=== PATIENT | female | born 1985 | race Caucasian/White ===

== ENCOUNTER 2016-10-04 10:36 | Emergency (ER) | payer OTHER ==
[2016-10-04 10:41] VITALS: TEMP 98.1; BMI 28.3
--- NOTE | 2016-10-04 11:28 | PDOC ---
History of Present Illness - General Chief Complaint: Pain Stated Complaint: RT SIDE PAIN Time Seen by Provider: 10/04/16 11:19 History Source: Patient Exam Limitations: No Limitations - History of Present Illness Initial Comments: 10/04/16 11:28 CHIEF COMPLAINT: Flank pain HISTORY OF PRESENT ILLNESS: This is an otherwise healthy 30 year old female, s/ p cholecystectomy, who presents for evaluation of two days of right upper abdominal/right flank pain. She also reports urinary frequency, but denies dysuria or hematuria. She has had some nausea. She denies fevers/chills, constipation/diarrhea, and vomiting. PCP is Dr. Limon. Nursing documentation reviewed and disagree: respiratory rate is 18. REVIEW OF SYSTEMS: GENERAL/CONSTITUTIONAL: No fever or chills. No weakness. No weight change. HEAD, EYES, EARS, NOSE AND THROAT: No change in vision. No ear pain or discharge. No sore throat. CARDIOVASCULAR: No chest pain or palpitations. RESPIRATORY: No cough, wheezing, or shortness of breath. GASTROINTESTINAL: Nausea. No vomiting, diarrhea or constipation. GENITOURINARY: See HPI. MUSCULOSKELETAL: No joint or muscle swelling or pain. No neck or back pain. SKIN: No rash or easy bruising. NEUROLOGIC: No headache, vertigo, loss of consciousness, or loss of sensation. PSYCHIATRIC: No depression or anxiety. ENDOCRINE: No increased thirst. No abnormal weight change. HEMATOLOGIC/LYMPHATIC: No anemia, easy bleeding, or history of blood clots. ALLERGIC/IMMUNOLOGIC: No hives or skin allergy. No latex allergy. PHYSICAL EXAM: GENERAL: The patient is awake, alert, and fully oriented, in no acute distress. ENT: Pupils equal, round and reactive to light, extraocular movements intact, sclera anicteric, conjunctiva clear. Neck supple. LUNGS: Clear to auscultation bilaterally. Normal excursion. No respiratory distress or use of accessory muscles. CV: RRR, S1/S2, no MRG. Cap refill < 2 sec. ABDOMEN: Soft, non-distended, right CVA tenderness, no abdominal tenderness. EXTREMITIES: Normal range of motion, no edema. NEUROLOGICAL: Normal speech, normal gait. CN II-XII grossly intact. PSYCH: Normal mood, normal affect. SKIN: Warm, dry, normal turgor, no rashes or lesions noted. Past History - Past Medical History Allergies/Adverse Reactions: Allergies Allergy/AdvReac Type Severity Reaction Status Date / Time No Known Allergies Allergy Verified 10/04/16 10:38 Home Medications: Ambulatory Orders Amitriptyline HCl [Elavil -] 0 mg PO DAILY 10/04/16 Ibuprofen [Motrin -] 600 mg PO QID PRN #30 tablet 10/04/16 Anemia: No Asthma: No Cancer: No Cardiac Disorders: No CVA: No COPD: No CHF: No DVT: No Diabetes: No HTN: No Hypercholesterolemia: No Suicide Attempt (Hx): No - Surgical History Abdominal Surgery: No Appendectomy: No Cardiac Surgery: No Cholecystectomy: Yes Lung Surgery: No Neurologic Surgery: No - Immunization History Immunization Up to Date: Yes - Psycho/Social/Smoking Cessation Hx Anxiety: No Suicidal Ideation: No Smoking Status: No Smoking History: Never smoked Have you smoked in the past 12 months: No Number of Cigarettes Smoked Daily: 0 Information on smoking cessation initiated: No Hx Alcohol Use: No Drug/Substance Use Hx: No Substance Use Type: None Hx Substance Use Treatment: No *Physical Exam - Vital Signs Last Vital Signs Temp Pulse Resp BP Pulse Ox 98.1 F 73 8 L 123/71 100 10/04/16 10:39 10/04/16 10:39 10/04/16 10:39 10/04/16 10:39 10/04/16 10:39 ED Treatment Course - LABORATORY CBC & Chemistry Diagram: 10/04/16 11:49 10/04/16 11:49 Medical Decision Making - Medical Decision Making 10/04/16 17:35 A/P: 30 year old female with flank pain, urinary frequency, and nausea. 1. UA, culture, 2. Basic labs 3. Toradol 30mg IVP for pain UA with 1+ blood. CT spiral renal stone protocol obtained showing punctate bilateral nephrolithiasis without obstructing stone. Patient re-evaluated and is pain free. Agrees to follow up with PCP. Return precautions reviewed. *DC/Admit/Observation/Transfer Diagnosis at time of Disposition: Flank pain - Discharge Dispostion Disposition: HOME Admit: No - Prescriptions Prescriptions: Ibuprofen [Motrin -] 600 mg PO QID PRN #30 tablet PRN Reason: Pain - Referrals Referrals: Michelle De Anda MD [Primary Care Provider] - - Patient Instructions Printed Discharge Instructions: DI for Flank Pain Additional Instructions: -Rest and stay well-hydrated -Take ibuprofen as prescribed for pain -Follow up with Dr. Limon on Friday -Return here for worsening pain or any other concerning symptoms - Post Discharge Activity Work/School Note: Back to Work
[2016-10-04] MEDS ORDERED: ONDANSETRON 4 MG/2 ML VIAL IVPUSH ONE (11:32)
[2016-10-04] MEDS ORDERED: KETOROLAC TROMETHAMINE 30 MG/1 ML VIAL IVPUSH ONE (11:33)
[2016-10-04 11:41] LABS: URINE APPEARANCE CLEAR; URINE BILIRUBIN NEGATIVE (NEGATIVE); URINE COLOR STRAW; URINE GLUCOSE (UA) NEGATIVE (NEGATIVE); URINE KETONE NEGATIVE (NEGATIVE); URINE LEUK ESTERASE NEGATIVE (NEGATIVE); URINE NITRITE NEGATIVE (NEGATIVE); URINE PROTEIN NEGATIVE (NEGATIVE); URINE UROBILINOGEN NEGATIVE E.U./dl (0.2-1.0)
[2016-10-04] MEDS ORDERED: ONDANSETRON 4 MG/2 ML VIAL ONE (11:52)
[2016-10-04] MEDS ORDERED: KETOROLAC TROMETHAMINE 30 MG/1 ML VIAL ONE (11:52)
[2016-10-04 11:57] LABS: URINE BLOOD 1+ (NEGATIVE)
[2016-10-04 12:00] LABS: URINE WBC 1 /hpf (3-5)
[2016-10-04 12:06] LABS: BASOPHIL 0.4 % (0-2.0); EOSINOPHIL 1.6 % (0-4.5); MCH 29.5 pg (25.7-33.7); MCHC 33.9 g/dl (32.0-36.0); MEAN PLT VOLUME 8.6 fl (7.5-11.1); NEUTROPHILS 50.4 % (42.8-82.8); PLATELET COUNT 283 K/MM3 (134-434); RDW 13.1 % (11.6-15.6); WHITE BLOOD COUNT 7.4 K/mm3 (4.0-10.0)
[2016-10-04 12:26] LABS: ALBUMIN 4.3 g/dl (3.4-5.0); ALK PHOS 65 U/L (45-117); ANION GAP 10 (8-16); BILIRUBIN,TOTAL 0.4 mg/dL (0.2-1.0); CALCIUM 9.6 mg/dL (8.5-10.1); CO2 28 mmol/L (21-32); CREATININE 0.6 mg/dL (0.55-1.02); GLUCOSE,RANDOM 83 mg/dL (74-106); SGOT/AST 21 U/L (15-37); SGPT/ALT 35 U/L (12-78); TOT PROT 7.7 g/dl (6.4-8.2)
[2016-10-04 14:01] VITALS: BP 121/78; PULSE 78
== END 2016-10-04 14:00 | disposition home or self-care (01) ==
LOC: JER 10:36
PROC: 3E0333Z Introduction of Anti-inflammatory into Peripheral Vein, Percutaneous Approach (ICD-10-PCS; principal; 2016-10-04)
PROC: 3E033GC Introduction of Other Therapeutic Substance into Peripheral Vein, Percutaneous Approach (ICD-10-PCS; 2016-10-04)
DX: R10.31 Right lower quadrant pain (principal)
CPT/HCPCS: 36415; 74176; 80053; 81003; 81015; 83690; 84703; 85025; 87086; 96374; 96375; 99282-25

== ENCOUNTER 2016-12-18 13:02 | Emergency (ER) | payer OTHER ==
[2016-12-18 13:08] VITALS: BMI 29.2
--- NOTE | 2016-12-18 13:40 | PDOC ---
History of Present Illness - General Chief Complaint: Pain Stated Complaint: PAIN/ ABD, BACK Time Seen by Provider: 12/18/16 13:29 History Source: Patient Exam Limitations: No Limitations - History of Present Illness Initial Comments: CHIEF COMPLAINT: 31 y/o afebrile female with PMH GERD and gallstone pancreatitis (gallbladder removed) c/o upper abdominal pain with eating x 3 days. HISTORY OF PRESENT ILLNESS: The patient states the pain is sharp, radiates around her left upper abdomen and into her back. She has mild associated nausea. She denies f/c, v/d, CP, SOB, hematuria, dysuria. Vital signs on arrival are within normal limits. REVIEW OF SYSTEMS: GENERAL/CONSTITUTIONAL: No fever/chills. No weakness. No weight change. HEAD, EYES, EARS, NOSE AND THROAT: No change in vision. No ear pain or discharge. No sore throat. CARDIOVASCULAR: No chest pain or shortness of breath. RESPIRATORY: No cough, wheezing, or hemoptysis. GASTROINTESTINAL: +upper abdominal pain and nausea. No vomiting, diarrhea, constipation. GENITOURINARY: No dysuria, frequency, or change in urination. MUSCULOSKELETAL: No joint or muscle swelling or pain. No neck or back pain. SKIN: No rash or easy bruising. NEUROLOGIC: No headache, vertigo, loss of consciousness, or loss of sensation. PHYSICAL EXAM: GENERAL: The patient is awake, alert, and fully oriented, in no acute distress. She is well appearing, ambulatory, in NAD or obvious discomfort. HEAD: Normal with no signs of trauma. ENT: Pupils equal, round and reactive to light, extraocular movements intact, sclera anicteric, conjunctiva clear. Neck supple. LUNGS: Clear to auscultation bilaterally. Normal excursion. No respiratory distress or use of accessory muscles. CV: RRR, S1/S2, no MRG. Cap refill < 2 sec. ABDOMEN: Soft, TTP of epigstric and LUQ. Negative mckeon's sign. No rebound, guarding or rigidity. BACK: No CVA TTP b/l. EXTREMITIES: Normal range of motion, no edema. NEUROLOGICAL: Normal speech, normal gait. CN II-XII grossly intact. PSYCH: Normal mood, normal affect. SKIN: Warm, dry, normal turgor, no rashes or lesions noted. Past History - Past Medical History Allergies/Adverse Reactions: Allergies Allergy/AdvReac Type Severity Reaction Status Date / Time No Known Allergies Allergy Verified 12/18/16 13:08 Home Medications: Ambulatory Orders Omeprazole 20 mg PO DAILY 12/18/16 Anemia: No Asthma: No Cancer: No Cardiac Disorders: No CVA: No COPD: No CHF: No DVT: No Diabetes: No HTN: No Hypercholesterolemia: No Suicide Attempt (Hx): No - Surgical History Abdominal Surgery: No Appendectomy: No Cardiac Surgery: No Cholecystectomy: Yes Lung Surgery: No Neurologic Surgery: No - Immunization History Immunization Up to Date: Yes - Psycho/Social/Smoking Cessation Hx Anxiety: No Suicidal Ideation: No Smoking Status: No Smoking History: Never smoked Have you smoked in the past 12 months: No Number of Cigarettes Smoked Daily: 0 Hx Alcohol Use: No Drug/Substance Use Hx: No Substance Use Type: None Hx Substance Use Treatment: No Abd/GI Specific PMHX - Complaint Specific PMHX Colitis: No Diverticulitis: No Gall Bladder Disease: No GERD: No Hepatitis: No Irritable Bowel Synd (IBS): No Pancreatitis: No *Physical Exam - Vital Signs Last Vital Signs Temp Pulse Resp BP Pulse Ox 98.3 F 87 20 128/69 99 12/18/16 13:06 12/18/16 13:06 12/18/16 13:06 12/18/16 13:06 12/18/16 13:06 ED Treatment Course - LABORATORY CBC & Chemistry Diagram: 12/18/16 14:00 12/18/16 14:00 Medical Decision Making - Medical Decision Making A/P: 31 y/o female with epigastric pain that radiates around to her back x 3 days. Plan is as follows: 1. Labs 2. UA/hcg 3. IV fluids 4. IV pepcid Labs unremarkable. UA unremarkable. hcg - negative The patient states she does feel better after pepcid. She admits she does have GERD and was told by her GI doctor (doesn't remember name) that she should either change her diet or take omeprazole daily. She does neither. She states a few days ago she did take 1 omeprazole. I informed her that the omeprazole really doesn't work well unless it is taken daily for a few weeks/months consistently. I suggested she buy some OTC pepcid or zantac and take for flare ups as that is fast acting. Instructed her to f/u with her GI doctor and return to the ER with any worsening or concerning symptoms. The patient verbalizes understanding of all instructions, has no further questions and is awaiting discharge. *DC/Admit/Observation/Transfer Diagnosis at time of Disposition: Gastroesophageal reflux disease Qualifiers: Esophagitis presence: without esophagitis Qualified Code(s): K21.9 - Gastro- esophageal reflux disease without esophagitis - Discharge Dispostion Disposition: HOME Condition at time of disposition: Improved - Referrals Referrals: Michelle De Anda MD [Primary Care Provider] - - Patient Instructions Printed Discharge Instructions: GERD Diet, DI for Gastroesophageal Reflux Disease (GERD) Additional Instructions: Discharge Instructions: -Follow GERD diet suggestions to help with symptoms -Try over the counter zantac or pepcid for GERD flare ups -Call your stomach doctor tomorrow to schedule follow up appointment as soon as possible -Return to the ER with any worsening or concerning symptoms
[2016-12-18] MEDS ORDERED: SODIUM CHLORIDE 1,000 ML IV STA (13:46)
[2016-12-18] MEDS ORDERED: FAMOTIDINE 20 MG/50 ML IVPB 50 ML IVPB ONE ×2 (13:46→13:56)
[2016-12-18 14:45] LABS: BASOPHIL 0.3 % (0-2.0); EOSINOPHIL 1.4 % (0-4.5); MCH 29.5 pg (25.7-33.7); MCHC 34.1 g/dl (32.0-36.0); MEAN CELL VOLUME 86.7 fl (80-96); MEAN PLT VOLUME 8.8 fl (7.5-11.1); NEUTROPHILS 53.1 % (42.8-82.8); PLATELET COUNT 278 K/MM3 (134-434); RDW 12.9 % (11.6-15.6); WHITE BLOOD COUNT 7.9 K/mm3 (4.0-10.0)
[2016-12-18 14:49] LABS: URINE APPEARANCE SLCLOUDY; URINE BILIRUBIN NEGATIVE (NEGATIVE); URINE BLOOD 3+ (NEGATIVE); URINE COLOR YELLOW; URINE GLUCOSE (UA) NEGATIVE (NEGATIVE); URINE KETONE NEGATIVE (NEGATIVE); URINE LEUK ESTERASE NEGATIVE (NEGATIVE); URINE NITRITE NEGATIVE (NEGATIVE); URINE PROTEIN NEGATIVE (NEGATIVE); URINE UROBILINOGEN NEGATIVE mg/dL (0.2-1.0)
[2016-12-18 14:58] LABS: URINE MUCUS RARE; URINE RBC 13 /hpf (0-3); URINE WBC 13 /hpf (3-5)
[2016-12-18 15:07] LABS: ALBUMIN 4.3 g/dl (3.4-5.0); ANION GAP 5 (8-16); BILIRUBIN,TOTAL 0.4 mg/dL (0.2-1.0); CALCIUM 9.2 mg/dL (8.5-10.1); CO2 30 mmol/L (21-32); CREATININE 0.7 mg/dL (0.55-1.02); GLUCOSE,RANDOM 88 mg/dL (74-106); SGOT/AST 22 U/L (15-37); SGPT/ALT 36 U/L (12-78); TOT PROT 7.5 g/dl (6.4-8.2)
[2016-12-18 15:08] LABS: ALK PHOS 59 U/L (45-117)
[2016-12-18 17:01] VITALS: BP 115/70; PULSE 71; TEMP 98.1
== END 2016-12-18 17:01 | disposition home or self-care (01) ==
LOC: JER 13:02
PROC: 3E033GC Introduction of Other Therapeutic Substance into Peripheral Vein, Percutaneous Approach (ICD-10-PCS; principal; 2016-12-18)
PROC: 3E0337Z Introduction of Electrolytic and Water Balance Substance into Peripheral Vein, Percutaneous Approach (ICD-10-PCS; 2016-12-18)
DX: K21.9 Gastro-esophageal reflux disease without esophagitis (principal)
CPT/HCPCS: 36415; 80053; 81003; 81015; 83690; 84703; 85025; 96361; 96365; 99285-25

== ENCOUNTER 2018-07-12 18:56 | Emergency (ER) | payer OTHER ==
[2018-07-12 19:00] VITALS: BP 124/69; PULSE 76; TEMP 97.9; BMI 29.2
[2018-07-12] MEDS ORDERED: DEXAMETHASONE LIQUID 0.5 MG/5 ML 240 ML BULK BOTTLE PO ONE (20:22)
[2018-07-12] MEDS ORDERED: DEXAMETHASONE SOD PHOSPHATE 10 MG/1 ML VIAL ONE (20:29)
--- NOTE | 2018-07-12 20:34 | PDOC ---
History of Present Illness - General Chief Complaint: Pain Stated Complaint: SORE THROAT Time Seen by Provider: 07/12/18 19:41 History Source: Patient Exam Limitations: No Limitations - History of Present Illness Initial Comments: 07/12/18 20:26 HISTORY OF PRESENT ILLNESS: This is a 32-year-old otherwise healthy woman who presents emergency department for evaluation of sore throat for one week. Patient relates the pain is getting worse and is now moved to her right jaw into her right ear. Patient reports feeling nauseous but denies any vomiting. Patient is able to eat and drink without difficulty and is able tolerate her own secretions. She denies fevers but reports chills. No recent travel or sick contacts. PAST MEDICAL HISTORY: Denies past medical history SURGICAL HISTORY: Denies ALLERGIES: No known drug allergies REVIEW OF SYSTEMS General/Constitutional: Denies fever. (+)chills. Denies weakness, weight change. HEENT: Denies change in vision. Right ear pain. Denies discharge. (+)sore throat . Cardiovascular: Denies chest pain or shortness of breath. Respiratory: Denies cough, wheezing, or hemoptysis. Gastrointestinal: Denies nausea, vomiting, diarrhea or constipation. Denies rectal bleeding. Genitourinary: Denies dysuria, frequency, or change in urination. Musculoskeletal: Denies joint or muscle swelling or pain. Denies neck or back pain. Skin and breasts: Denies rash or easy bruising. Neurologic: Denies headache, vertigo, loss of consciousness, or loss of sensation. Psychiatric: Denies depression or anxiety. Endocrine: Denies increased thirst. Denies abnormal weight change. Hematologic/Lymphatic: Denies anemia, easy bleeding, or history of blood clots. Allergic/Immunologic: Denies hives or skin allergy. Denies latex allergy. PHYSICAL EXAM General Appearance: Well-appearing, appropriately dressed. No apparent distress , no intoxication. HEENT: EOMI, PERRLA, normal ENT inspection, normal voice, TMs normal, pharynx normal. No conjunctival pallor. No photophobia, scleral icterus. Uvula midline. Cobblestoning in posterior OP. Neck: Supple. Trachea midline. No tenderness, rigidity, carotid bruit, stridor , lymphadenopathy, or thyromegaly. Respiratory/Chest: Lungs CTAB. No shortness of breath, chest tenderness, respiratory distress, accessory muscle use. No crackles, rales, rhonchi, stridor , wheezing, dullness Cardiovascular: RRR. S1, S2. No JVD, murmur, bradycardia, tachycardia. Vascular Pulses: Dorsalis-Pedis (R): 2+, Dorsalis-Pedis (L): 2+ Gastrointestinal/Abdominal: Normal bowel sounds. Abdomen soft, non-distended. No tenderness or rebound tenderness. No organomegaly, pulsatile mass, guarding, hernia, hepatomegaly, splenomegaly. Lymphatic: No adenopathy, tenderness. Musculoskeletal/Extremities: Normal inspection. FROM of all extremities, normal capillary refill. Pelvis Stable. No CVA tenderness. No tenderness to extremities, pedal edema, swelling, erythema or deformity. Integumentary: Appropriate color, dry, warm. No cyanosis, erythema, jaundice or rash Neurologic: roll forming supervisor II-XII intact. Fully oriented, alert. Appropriate mood/affect. Motor strength 5/5. No appreciable EOM palsy, facial droop or sensory deficit. Past History - Past Medical History Allergies/Adverse Reactions: Allergies Allergy/AdvReac Type Severity Reaction Status Date / Time No Known Allergies Allergy Verified 07/12/18 18:57 Home Medications: Ambulatory Orders Omeprazole 20 mg PO DAILY 12/18/16 Anemia: No Asthma: No Cancer: No Cardiac Disorders: No CVA: No COPD: No CHF: No DVT: No Diabetes: No HTN: No Hypercholesterolemia: No - Surgical History Abdominal Surgery: No Appendectomy: No Cardiac Surgery: No Cholecystectomy: Yes Lung Surgery: No Neurologic Surgery: No - Immunization History Immunization Up to Date: Yes - Suicide/Smoking/Psychosocial Hx Smoking Status: No Smoking History: Never smoked Have you smoked in the past 12 months: No Number of Cigarettes Smoked Daily: 0 Hx Alcohol Use: No Drug/Substance Use Hx: No Substance Use Type: None Hx Substance Use Treatment: No *Physical Exam - Vital Signs Last Vital Signs Temp Pulse Resp BP Pulse Ox 97.9 F 76 18 124/69 99 07/12/18 18:59 07/12/18 18:59 07/12/18 18:59 07/12/18 18:59 07/12/18 18:59 Moderate Sedation - Procedure Monitoring Vital Signs: Procedure Monitoring Vital Signs Temperature 97.9 F 07/12/18 18:59 Pulse Rate 76 02/10/19 18:59 Respiratory Rate 18 07/12/18 18:59 Blood Pressure 124/69 07/12/18 18:59 O2 Sat by Pulse Oximetry (%) 99 07/12/18 18:59 Medical Decision Making - Medical Decision Making 07/12/18 20:34 A/P: 32-year-old woman with 1 week of sore throat Rapid strep testing Decadron 10 mg orally Reassess 07/12/18 20:47 Strep testing is negative. I will discharge the patient home with symptomatic treatment for her pharyngitis. I discussed the physical exam findings, ancillary test results and final diagnoses with the patient. I answered all of the patient's questions. The patient was satisfied with the care received and felt comfortable with the discharge plan and treatment plan. The patient will call their primary care physician within 24 hours to arrange follow-up and will return to the Emergency Department with any new, persistent or worsening symptoms. *DC/Admit/Observation/Transfer Diagnosis at time of Disposition: Pharyngitis Qualifiers: Pharyngitis/tonsillitis etiology: unspecified etiology Qualified Code(s): J02.9 - Acute pharyngitis, unspecified - Discharge Dispostion Disposition: HOME Condition at time of disposition: Stable Decision to Admit order: No - Referrals - Patient Instructions Additional Instructions: Rest, drink lots of fluids: Teas, water, soups, Pedialyte Saltwater gargles Steamy showers/seem to face break up mucus Avoid contact with others until fevers and cough resolved Lots of handwashing and good hygiene Continue [id number] medications for symptomatic relief Tylenol or Motrin for fever and pain Followup with private physician in one to 2 days as needed Return to emergency department for worsened symptoms, fevers, dehydration - Post Discharge Activity
== END 2018-07-12 21:23 | disposition home or self-care (01) ==
LOC: JER 18:56
DX: J02.9 Acute pharyngitis, unspecified (principal)
CPT/HCPCS: 87070; 87880; 99282-25

== ENCOUNTER 2018-10-10 15:13 | Emergency (ER) | payer OTHER ==
[2018-10-10 15:32] VITALS: BMI 28.8
[2018-10-10 16:33] LABS: EPI CELLS 9.2 /HPF (0-5/HPF); PH,URINE >= 9.0 (5.0-8.0); URINE APPEARANCE TURBID; URINE BACTERIA 216.8 /hpf (NEGATIVE); URINE BILIRUBIN NEGATIVE (NEGATIVE); URINE CASTS 5 /lpf (0-8); URINE COLOR YELLOW; URINE GLUCOSE (UA) NEGATIVE (NEGATIVE); URINE KETONE NEGATIVE (NEGATIVE); URINE LEUK ESTERASE 3+ (NEGATIVE); URINE NITRITE NEGATIVE (NEGATIVE); URINE PROTEIN TRACE (NEGATIVE); URINE RBC 227 /hpf (0-4); URINE UROBILINOGEN 0.2 mg/dL (0.2-1.0); URINE WBC 149 /hpf (0-5)
--- NOTE | 2018-10-10 16:46 | PDOC ---
Documentation entered by Zaki Hoffman SCRIBE, acting as scribe for Yari Ibarra MD. Yari Ibarra MD: This documentation has been prepared by the Yasmin duque Nirvannie, SCRIBE, under my direction and personally reviewed by me in its entirety. I confirm that the documentation accurately reflects all work, treatment, procedures, and medical decision making performed by me. Attending Attestation - Resident Resident Name: JusLarry - ED Attending Attestation I have performed the following: I have examined & evaluated the patient, The case was reviewed & discussed with the resident, I agree w/resident's findings & plan - HPI HPI: 10/10/18 16:45 The patient is a 32 year old female, with a significant past medical history of pre-diabetes and GERD, who presents to the emergency department with, 3 days of dysuria and 1 day of hematuria with blood clots. Patient endorses associated mid -abdominal pain and lower mid-back pain. She notes similar episodes in the past that was diagnosed as a UTI. She denies recent fevers, chills, headache or dizziness. She denies recent nausea, vomit, diarrhea or constipation. She denies recent chest pain or shortness of breath. Allergies: NKDA Past surgical history: Cholecystectomy. Social history: Nonsmoker. Denies EtOH use and recreational drug use. Primary Care Physician: Monica Deras. - Physicial Exam PE: 10/10/18 16:30 GENERAL: The patient is in no acute distress. ENT: Ears normal, nares patent, oropharynx clear without exudates. Moist mucous membranes. NECK: Normal range of motion, supple LUNGS: Breath sounds equal, clear to auscultation bilaterally. No wheezes, and no crackles. HEART:Regular rate and rhythm, normal S1 and S2 without murmur, rub or gallop. ABDOMEN: Soft, suprapubic tenderness to palpation, no involuntary guarding or rebound NEUROLOGICAL: Cranial nerves II through XII grossly intact. Normal speech. No focal neurological deficits. SKIN: Warm, Dry, normal turgor, no rashes or lesions noted. 10/10/18 16:39 - Medical Decision Making 10/10/18 16:40 32 yo F presenting to the ER with a complaint of 3 days of suprapubic tenderness and hematuria Selected Entries 10/10/18 15:28 Pulse Rate 74 Blood Pressure 110/61 DD: cystitis, uti, unlikely appendicitis (no rlq tenderness), unlikely kidney stones (no cva tenderness), unlikely PID (no vaginal discharge) Will send UA Will give abx and pyridium 10/10/18 16:42 10/10/18 16:58 Laboratory Tests 10/10/18 10/10/18 16:10 16:10 Urine Ketones Negative Urine Blood 3+ H Urine Nitrite Negative Ur Leukocyte Esterase 3+ H Urine WBC (Auto) 149 Urine RBC (Auto) 227 Urine HCG, Qual Negative Will discharge to home on abx and pyridium
--- NOTE | 2018-10-10 16:55 | PDOC ---
History of Present Illness - General Chief Complaint: Hematuria Stated Complaint: BLOOD IN URINE \ BURNING SENSATION Time Seen by Provider: 10/10/18 15:54 History Source: Patient Exam Limitations: No Limitations - History of Present Illness Initial Comments: 10/10/18 16:46 32F with no PMH who presents to the ER with complaints of dysuria and hematuria. The patient states that she's had 3 days of dysuria without vaginal discharge, new sexual contacts, or unprotected sex. She denies fever, chills, CP , SOB. She admits to mild suprapubic discomfort. She also admits to mild CVA pain. She denies nausea and vomiting. Past History - Past Medical History Allergies/Adverse Reactions: Allergies Allergy/AdvReac Type Severity Reaction Status Date / Time No Known Allergies Allergy Verified 10/10/18 15:27 Home Medications: Ambulatory Orders Cephalexin Monohydrate [Keflex -] 500 mg PO BID #14 capsule 10/10/18 Anemia: No Asthma: No Cancer: No Cardiac Disorders: No CVA: No COPD: No CHF: No DVT: No Diabetes: No HTN: No Hypercholesterolemia: No - Surgical History Abdominal Surgery: No Appendectomy: No Cardiac Surgery: No Cholecystectomy: Yes Lung Surgery: No Neurologic Surgery: No - Immunization History Immunization Up to Date: Yes - Suicide/Smoking/Psychosocial Hx Smoking Status: No Smoking History: Never smoked Have you smoked in the past 12 months: No Number of Cigarettes Smoked Daily: 0 Hx Alcohol Use: No Drug/Substance Use Hx: No Substance Use Type: None Hx Substance Use Treatment: No Review of Systems - Review of Systems Able to Perform ROS?: Yes Comments:: 10/10/18 17:08 GENERAL/CONSTITUTIONAL: No fever or chills. No weakness. HEAD, EYES, EARS, NOSE AND THROAT: No change in vision. No ear pain or discharge. No sore throat. CARDIOVASCULAR: No chest pain, palpitations, or lightheadedness. RESPIRATORY: No cough, wheezing, shortness of breath, or hemoptysis. GASTROINTESTINAL: No nausea, vomiting, diarrhea, constipation, or abdominal pain. GENITOURINARY: + for dysuria and hematuria. MUSCULOSKELETAL: No joint or muscle swelling or pain. No neck or back pain. SKIN: No rash or lesions. NEUROLOGIC: No headache, numbness, tingling, focal weakness, loss of consciousness, or change in strength/sensation. Is the patient limited Frisian proficient: No *Physical Exam - Vital Signs Last Vital Signs Temp Pulse Resp BP Pulse Ox 98.8 F 74 16 110/61 100 10/10/18 15:28 10/10/18 15:28 10/10/18 15:28 10/10/18 15:28 10/10/18 15:28 - Physical Exam Comments: 10/10/18 17:21 GENERAL: Well developed, well nourished. Awake and alert. No acute distress. HEENT: Normocephalic, atraumatic. Hearing grossly normal. Moist mucous membranes. PERRLA, EOMI. No conjunctival pallor. Sclera are non-icteric. NECK: Supple. Full ROM. No JVD. CARDIOVASCULAR: Regular rate and rhythm. No murmurs, rubs, or gallops. PULMONARY: No evidence of respiratory distress. Lungs clear to auscultation bilaterally. No wheezing, rales or rhonchi. ABDOMINAL: Soft. Mild tenderness to deep palpation in suprapubic abdomen. No McBurney's point tenderness. Non-distended. No rebound or guarding. GENITOURINARY: Mild CVA tenderness bilaterally. MUSCULOSKELETAL: Normal range of motion at all joints. No bony deformities or tenderness. EXTREMITIES: No cyanosis. No clubbing. No edema. No calf tenderness or swelling. SKIN: Warm and dry. Normal capillary refill. No rashes. No jaundice. NEUROLOGICAL: Alert, awake, appropriate. Cranial nerves 2-12 intact. Normal speech. Gait is normal without ataxia. PSYCHIATRIC: Cooperative. Good eye contact. Appropriate mood and affect. ED Treatment Course - ADDITIONAL ORDERS Additional order review: Laboratory Results 10/10/18 16:10 Urine Color Yellow Urine Appearance Turbid Urine pH >= 9.0 H D Ur Specific [place] 1.015 Urine Protein Trace Urine Glucose (UA) Negative Urine Ketones Negative Urine Blood 3+ H Urine Nitrite Negative Urine Bilirubin Negative Urine Urobilinogen 0.2 Ur Leukocyte Esterase 3+ H Urine WBC (Auto) 149 Urine RBC (Auto) 227 Urine Casts (Auto) 5 U Epithel Cells (Auto) 9.2 Urine Bacteria (Auto) 216.8 Medical Decision Making - Medical Decision Making 10/10/18 17:22 32F who presents with cystitis symptoms. Will obtain urine and reassess. Pt w/ IUD but will check upreg. Otherwise well appearing without concerning symptoms for pyelo, (fevers, chills, flank pain). 10/10/18 17:35 UA shows UTI. Will d/c with PCP f/u. *DC/Admit/Observation/Transfer Diagnosis at time of Disposition: UTI (urinary tract infection) Qualifiers: Urinary tract infection type: site unspecified Hematuria presence: with hematuria Qualified Code(s): N39.0 - Urinary tract infection, site not specified ; R31.9 - Hematuria, unspecified - Discharge Dispostion Disposition: HOME Condition at time of disposition: Stable Decision to Admit order: No - Prescriptions Prescriptions: Cephalexin Monohydrate [Keflex -] 500 mg PO BID #14 capsule - Referrals - Patient Instructions Printed Discharge Instructions: DI for Urinary Tract Infection (UTI) Additional Instructions: Your ER visit is not complete until your follow up with your primary care physician. Please follow up with your primary care physician in 1-2 days. Please return to the ER if you have any signs or symptoms of chest pain, shortness of breath, uncontrollable fever, chills, nausea, vomiting, numbness, tingling, or weakness in any part of your body, changes in vision, or slurred speech. Please take your medications as prescribed. Please return to the ER if symptoms persist, worsen, or new symptoms arise - Post Discharge Activity
[2018-10-10 17:37] VITALS: BP 122/68; PULSE 76; TEMP 98.4
== END 2018-10-10 17:41 | disposition home or self-care (01) ==
LOC: JER 15:13
DX: N39.0 Urinary tract infection, site not specified (principal)
CPT/HCPCS: 81003; 84703; 87086; 99282-25

== ENCOUNTER 2019-04-28 08:50 | Emergency (ER) | payer OTHER ==
[2019-04-28 08:59] VITALS: BP 123/76; PULSE 76; TEMP 98.5; BMI 28.0
--- NOTE | 2019-04-28 09:47 | PDOC ---
History of Present Illness - General Chief Complaint: Urinary Problem Stated Complaint: UTI Time Seen by Provider: 04/28/19 08:58 History Source: Patient Exam Limitations: No Limitations - History of Present Illness Initial Comments: 04/28/19 09:43 33-year-old female history of recent UTI completed a course of antibiotics outpatient on 04/19 here today with 2 days of dysuria urgency and lower abdominal pain. Patient states symptoms are similar to the recent UTI symptoms she was taking [id number] Pyridium denies any fevers or chills no nausea no vomiting no flank pain. In addition patient states she has a history of a left-sided ovarian cyst denies any recent new sexual encounters does have a clear to whitish discharge and some vaginal itching since her recent antibiotic course. No moderating symptoms believes she was treated with Keflex most recently for her UTI 04/28/19 11:22 Past History - Past Medical History Allergies/Adverse Reactions: Allergies Allergy/AdvReac Type Severity Reaction Status Date / Time No Known Allergies Allergy Verified 04/28/19 08:58 Home Medications: Ambulatory Orders Fluconazole [Diflucan] 150 mg PO ONCE #1 tablet 04/28/19 Omeprazole 20 mg PO BID 04/28/19 Sulfamethoxazole/Trimethoprim [Bactrim Ds Tablet] 1 each PO BID #14 tablet 04/28 Anemia: No Asthma: No Cancer: No Cardiac Disorders: No CVA: No COPD: No CHF: No DVT: No Diabetes: No GI Disorders: Yes (GERD) HTN: No Hypercholesterolemia: No - Surgical History Abdominal Surgery: No Appendectomy: No Cardiac Surgery: No Cholecystectomy: Yes Lung Surgery: No Neurologic Surgery: No - Immunization History Immunization Up to Date: Yes - Psycho Social/Smoking Cessation Hx Smoking Status: No Smoking History: Never smoked Have you smoked in the past 12 months: No Number of Cigarettes Smoked Daily: 0 Information on smoking cessation initiated: No Hx Alcohol Use: No Drug/Substance Use Hx: No Substance Use Type: None Hx Substance Use Treatment: No Review of Systems - Review of Systems Constitutional: No: Chills HEENTM: No: Eye Pain Respiratory: No: Cough, Shortness of Breath Cardiac (ROS): No: Chest Pain ABD/GI: Yes: Abdominal cramping. No: Nausea, Vomiting : Yes: Burning, Dysuria, Discharge, Urgency. No: Flank Pain, Pain Musculoskeletal: No: Back Pain All Other Systems: Reviewed and Negative *Physical Exam - Vital Signs Last Vital Signs Temp Pulse Resp BP Pulse Ox 98.5 F 76 18 123/76 98 04/28/19 08:56 04/28/19 08:56 04/28/19 08:56 04/28/19 08:56 04/28/19 08:56 - Physical Exam Comments: 04/28/19 09:45 Awake alert no acute distress lungs are clear bilaterally heart is regular without murmurs rubs or gallops abdomen is soft there is mild suprapubic tenderness no rebound no guarding no CVA tenderness. exams notes scant white thick discharge adherent to the vaginal gleason. There is no CMT patient has mild left adnexal tenderness no palpable adnexal fullness or masses. Skin is warm and dry no rash patient is awake alert and oriented ED Treatment Course - RADIOLOGY Radiology Studies Ordered: Category Date Time Status TRANSVAGINAL ULTRASOUND US [US] Stat Ultrasound 04/28/19 09:43 Ordered Medical Decision Making - Medical Decision Making 04/28/19 09:46 33-year-old female recently treated for UTI here with recurrent urinary symptoms. In addition has some left adnexal tenderness on exam a history of a left ovarian cyst. Differential includes UTI pyelo-does have symptoms consistent with candidiasis vaginitis. Plan transvaginal ultrasound rule out left adnexal cyst versus torsion versus cyst rupture. UA urine culture UCG and Diflucan for her vaginitis Discharge - Discharge Information Problems reviewed: Yes Clinical Impression/Diagnosis: UTI (urinary tract infection) Condition: Good Disposition: HOME - Admission No - Additional Discharge Information Prescriptions: Fluconazole [Diflucan] 150 mg PO ONCE #1 tablet Sulfamethoxazole/Trimethoprim [Bactrim Ds Tablet] 1 each PO BID #14 tablet - Follow up/Referral Referrals: Zonia Reyna MD [Staff Physician] - - Patient Discharge Instructions Patient Printed Discharge Instructions: Vaginal Yeast Infection, Urinary Tract Infection, Ovarian Cyst Additional Instructions: you have a urinary tract infection. you should take bactrim one tablet twice daily for one week. you can take diflucan one tablet in two days for a one time dose if you still have vaginal discharge and itching. you can also take over the counter monistat vaginal suppositories as directed to help with your vaginal itching and yeast infection. follow up with your regular doctor within one week. if symptoms do not improve in 48 hours of taking antiobiotics or you develop fever, nausea vomiting. back pain or any concerns return for repeat evaluation. your ultrasound shows bilteral ovarian cysts. this will need to be repeated in 6 - 8 weeks. you should follow up with a tax manager public. call [facility] tax manager public to schedule. if you do not have one. you can see DR eRyna see referral information and call to schedule. - Post Discharge Activity
[2019-04-28 10:14] LABS: URINE APPEARANCE CLOUDY; URINE BILIRUBIN NEGATIVE (NEGATIVE); URINE COLOR DK YELLOW; URINE GLUCOSE (UA) NEGATIVE (NEGATIVE); URINE KETONE NEGATIVE (NEGATIVE); URINE LEUK ESTERASE 3+ (NEGATIVE); URINE NITRITE POSITIVE (NEGATIVE); URINE PROTEIN TRACE (NEGATIVE)
[2019-04-28] MEDS ORDERED: SULFAMETHOXAZOLE/TRIMETHOPRIM 800MG/160MG D.S. TABLET PO ONE (11:46)
[2019-04-28] MEDS ORDERED: FLUCONAZOLE 150 MG TABLET PO ONE (11:46)
[2019-04-28 12:06] LABS: YEAST NONE SEEN (NEGATIVE)
[2019-04-28] MEDS ORDERED: FLUCONAZOLE 100 MG TABLET (UD) ONE (12:41)
[2019-04-28] MEDS ORDERED: SULFAMETHOXAZOLE/TRIMETHOPRIM 800MG/160MG D.S. TABLET ONE (12:42)
== END 2019-04-28 14:37 | disposition home or self-care (01) ==
LOC: JER 08:50
DX: N39.0 Urinary tract infection, site not specified (principal)
CPT/HCPCS: 76830-TC; 81003; 84703; 87086; 99284-25

== ENCOUNTER 2019-05-06 17:49 | Emergency (ER) | payer OTHER ==
[2019-05-06 18:20] VITALS: BMI 28.0
[2019-05-06] MEDS ORDERED: KETOROLAC TROMETHAMINE 30 MG/1 ML VIAL IVPUSH ONE (20:19)
[2019-05-06] MEDS ORDERED: SODIUM CHLORIDE 1,000 ML IV STA (20:19)
[2019-05-06] MEDS ORDERED: ONDANSETRON 4 MG/2 ML VIAL IVPUSH ONE (20:20)
[2019-05-06 20:46] LABS: BASO % 0.5 % (0-2.0); EOS % 1.3 % (0-4.5); HEMATOCRIT 36.3 % (32.4-45.2); HEMOGLOBIN 12.1 GM/dL (10.7-15.3); LYMPH % 36.4 % (8-40); MCH 29.3 pg (25.7-33.7); MCHC 33.4 g/dl (32.0-36.0); MEAN CELL VOLUME 87.8 fl (80-96); MEAN PLT VOLUME 7.9 fl (7.5-11.1); MONO % 7.7 % (3.8-10.2); NEUT % 54.1 % (42.8-82.8); PLATELET COUNT 279 K/MM3 (134-434); RBC 4.13 M/mm3 (3.60-5.2); RDW 12.6 % (11.6-15.6); WHITE BLOOD COUNT 10.1 K/mm3 (4.0-10.0)
[2019-05-06 20:59] LABS: EPI CELLS 2.4 /HPF (0-5/HPF); HYALINE CASTS 1 /lpf (0-8); URINE APPEARANCE CLOUDY; URINE BACTERIA 17.2 /hpf (NEGATIVE); URINE BILIRUBIN 1+ (NEGATIVE); URINE COLOR RED; URINE GLUCOSE (UA) NEGATIVE (NEGATIVE); URINE KETONE Error (NEGATIVE); URINE LEUK ESTERASE 2+ (NEGATIVE); URINE NITRITE POSITIVE (NEGATIVE); URINE PROTEIN 1+ (NEGATIVE); URINE RBC 210 /hpf (0-4); URINE WBC 51 /hpf (0-5)
[2019-05-06] MEDS ORDERED: KETOROLAC TROMETHAMINE 30 MG/1 ML VIAL ONE (21:07)
[2019-05-06] MEDS ORDERED: ONDANSETRON 4 MG/2 ML VIAL ONE (21:08)
--- NOTE | 2019-05-06 21:22 | PDOC ---
History of Present Illness - General Chief Complaint: Pain Stated Complaint: CYST IN OVARY Time Seen by Provider: 05/06/19 20:18 History Source: Patient Exam Limitations: No Limitations - History of Present Illness Initial Comments: Leeann is a 33 yo F w a hx of ovarian cysts and multiple recent UTI's treated twice with outpatient Abx but she believes they have not worked as she still has urinary symptoms of dysuria, frequency, and urgency. She denies having flank pain but states the lower left side of her abdomen has some mild tenderness. She has tried taking pyridium for discomfort with mild relief. She is and has one sexual partner. She has been tested for STD's one year ago and agrees to be tested again today. She is not sure which Abx she has received but thinks that the first time she got keflex which didn't work and the second time she thinks she received bactrim and that also didn't work. She denies having any nausea, vomiting, fevers, diarrhea, or constipation. PCP: Michelle Limon PSH: cholecystectomy Allergies: NKA, NKDA Social Hx: Denies smoking, drinking, or other substance usage Past History - Past Medical History Allergies/Adverse Reactions: Allergies Allergy/AdvReac Type Severity Reaction Status Date / Time No Known Allergies Allergy Verified 05/06/19 18:15 Home Medications: Ambulatory Orders Fluconazole [Diflucan] 150 mg PO ONCE #1 tablet 04/28/19 Omeprazole 20 mg PO BID 04/28/19 Sulfamethoxazole/Trimethoprim [Bactrim Ds Tablet] 1 each PO BID #14 tablet 04/28 Levofloxacin [Levaquin] 750 mg PO DAILY 6 Days #6 tablet 05/06/19 Anemia: No Asthma: No Cancer: No Cardiac Disorders: No CVA: No COPD: No CHF: No DVT: No Diabetes: No GI Disorders: Yes (GERD) HTN: No Hypercholesterolemia: No - Surgical History Abdominal Surgery: No Appendectomy: No Cardiac Surgery: No Cholecystectomy: Yes Lung Surgery: No Neurologic Surgery: No - Immunization History Immunization Up to Date: Yes - Psycho Social/Smoking Cessation Hx Smoking Status: No Smoking History: Never smoked Have you smoked in the past 12 months: No Number of Cigarettes Smoked Daily: 0 Hx Alcohol Use: No Drug/Substance Use Hx: No Substance Use Type: None Hx Substance Use Treatment: No Abd/GI Specific PMHX - Complaint Specific PMHX Colitis: No Diverticulitis: No Gall Bladder Disease: No GERD: No Hepatitis: No Irritable Bowel Synd (IBS): No Pancreatitis: No Review of Systems - Review of Systems Able to Perform ROS?: Yes Comments:: CONSTITUTIONAL: Absent: fever, no chills, no fatigue EYES: Absent: visual changes ENT: Absent: ear pain, no sore throat CARDIOVASCULAR: Absent: chest pain, no palpitations RESPIRATORY: Absent: cough, no SOB GI: Present: Abdominal pain Absent: no nausea, no vomiting, no constipation, no diarrhea GENITOURINARY: Present: Dysuria, frequency, urgency Absent: no hematuria MUSKULOSKELETAL: Absent: back pain, no arthralgia, no myalgia SKIN: Absent: rash NEURO: Absent: headache *Physical Exam - Vital Signs Last Vital Signs Temp Pulse Resp BP Pulse Ox 98.4 F 84 18 126/68 100 05/06/19 18:16 05/06/19 18:16 05/06/19 18:16 05/06/19 18:16 05/06/19 18:16 - Physical Exam GENERAL: Well-appearing, well-nourished. No apparent distress. HEENT: Normocephalic, atraumatic. PERRL, EOM intact. CARDIOVASCULAR: Normal S1, S2. Regular rate and rhythm. PULMONARY: No evidence of respiratory distress. Lungs clear to auscultation bilaterally. No wheezing, rales or rhonchi. ABDOMEN: Mild LLQ abdominal discomfort. Soft, non-distended, no rebound or guarding. EXTREMITIES: Normal ROM in all four extremities. No gross deformities. SKIN: Warm, dry. No rash NEUROLOGICAL: No focal neurological deficits. ED Treatment Course - LABORATORY CBC & Chemistry Diagram: 05/06/19 20:34 05/06/19 20:34 - ADDITIONAL ORDERS Additional order review: Laboratory Results 05/06/19 05/06/19 20:34 20:30 Lipase 148 Urine Color Red Urine Appearance Cloudy Urine pH 5.0 Ur Specific [place] 1.022 Urine Protein 1+ H Urine Glucose (UA) Negative Urine Ketones Error Urine Blood 3+ H Urine Nitrite Positive H Urine Bilirubin 1+ H Urine Urobilinogen 1.0 Ur Leukocyte Esterase 2+ H Urine WBC (Auto) 51 Urine RBC (Auto) 210 Urine Casts (Auto) 1 U Epithel Cells (Auto) 2.4 Urine Bacteria (Auto) 17.2 05/06/19 20:34 RBC 4.13 MCV 87.8 MCHC 33.4 RDW 12.6 MPV 7.9 D Neutrophils % 54.1 Lymphocytes % 36.4 Monocytes % 7.7 Eosinophils % 1.3 Basophils % 0.5 Medical Decision Making - Medical Decision Making Leeann is a 33 yo F w a hx of ovarian cysts and multiple recent UTI's treated twice with outpatient Abx but she believes they have not worked as she still has urinary symptoms of dysuria, frequency, and urgency. She denies having flank pain but states the lower left side of her abdomen has some mild tenderness. She has tried taking pyridium for discomfort with mild relief. She is and has one sexual partner. She has been tested for STD's one year ago and agrees to be tested again today. She is not sure which Abx she has received but thinks that the first time she got keflex which didn't work and the second time she thinks she received bactrim and that also didn't work. She denies having any nausea, vomiting, fevers, diarrhea, or constipation. Vital Signs Temp Pulse Resp BP Pulse Ox 98.4 F 84 18 126/68 100 05/06/19 18:16 05/06/19 18:16 05/06/19 18:16 05/06/19 18:16 05/06/19 18:16 DDx IBNLT: UTI/Pylo, electrolyte/metabolic disturbance, MALGORZATA, STD Plan: Labs, Urine, Abx, PCP FU Labs: Unremarkable, no MALGORZATA Urine: Supports UTI MDM: She has probably received keflex and bactrim so will treat her UTI with Levofloxacin and have her FU with her PCP - Strict return precautions discussed with patient - Instructed to limit physical activity secondary to soft cartilage concerns from levofloxacin Dispo - Home w pcp fu Patient concerned she has diverticulitis - CTAP ordered CTAP: nonobstructing nephrolithiasis w/o hydro, left ovarian cyst Discharge - Discharge Information Problems reviewed: Yes Clinical Impression/Diagnosis: UTI (urinary tract infection) Qualifiers: Urinary tract infection type: acute cystitis Hematuria presence: without hematuria Qualified Code(s): N30.00 - Acute cystitis without hematuria Condition: Improved Disposition: HOME - Admission No - Additional Discharge Information Prescriptions: Levofloxacin [Levaquin] 750 mg PO DAILY 6 Days #6 tablet - Follow up/Referral Referrals: [facility] [place] [facility] [place] [Provider Group] Michelle De Anda MD [Non Staff, Medical] - - Patient Discharge Instructions Patient Printed Discharge Instructions: Urinary Tract Infection, Levofloxacin Additional Instructions: You came into the ER with a UTI. We are sending different antibiotics to your pharmacy, please goto the pharmacy, pick them up and take as prescribed. Please schedule a follow up appointment with your primary care doctor in the next 3 to 5 days. Come back to the ER if your symptoms do not resolve in the next 5 days Print Language: LITHUANIAN - Post Discharge Activity
[2019-05-06 21:44] LABS: ALBUMIN 4.2 g/dl (3.4-5.0); BILIRUBIN,TOTAL 0.2 mg/dL (0.2-1); BLOOD UREA NITROGEN 10.1 mg/dL (7-18); CALCIUM 9.1 mg/dL (8.5-10.1); CREATININE 0.7 mg/dL (0.55-1.3); POTASSIUM 4.1 mmol/L (3.5-5.1); TOT PROT 7.2 g/dl (6.4-8.2)
--- NOTE | 2019-05-06 21:52 | PDOC ---
Attending Attestation - Resident Resident Name: Marv Mark - ED Attending Attestation I have performed the following: I have examined & evaluated the patient, The case was reviewed & discussed with the resident, I agree w/resident's findings & plan, Exceptions are as noted - HPI HPI: 05/07/19 02:55 See resident HPI - Physicial Exam PE: 05/07/19 02:55 Agree with resident exam - Medical Decision Making 05/07/19 02:55 33F here with recurrent UTIs. Was treated earlier this April for dysuria with Keflex, pt endorses resolution of symptoms for a little over a week and then presented here on 04/29/19 with 2 days of uti symptoms. She was started on Bactrim and states that her dysuria, urinary urgency, frequency is persisting after a week of treatment. Now with mild LLQ tenderness, no flank px , no fevers. Treatment failure? pyelo? diverticulitis? eval for anatomic complicating factors and possible obstruction F/u labs, ct ap Vitals are wnl WBC 10 No anatomic abnormalities, obstruction, acute bacterial nephritis, other adjacent infections appy, choley, perinephric abscess, no diverticulitis Will switch abx to course of levaquin F/u cultures for organism F/u pcp
[2019-05-07 00:52] VITALS: BP 110/62; PULSE 72; TEMP 97.9
--- NOTE | 2019-05-07 11:42 | EKG ---
Test Reason : Blood Pressure : / mmHG Vent. Rate : 091 BPM Atrial Rate : 091 BPM P-R Int : 146 ms QRS Dur : 088 ms QT Int : 384 ms P-R-T Axes : 061 062 016 degrees QTc Int : 472 ms NORMAL SINUS RHYTHM NONSPECIFIC ST ABNORMALITY NO PREVIOUS ECGS AVAILABLE Confirmed by ADWOA MOTA MD ([id number]) on 05/07/2019 11:41:57 AM Referred By: Confirmed By:ADWOA MTOA MD
== END 2019-05-07 01:15 | disposition home or self-care (01) ==
LOC: JER 17:49
PROC: 3E0333Z Introduction of Anti-inflammatory into Peripheral Vein, Percutaneous Approach (ICD-10-PCS; principal; 2019-05-06)
PROC: 3E033GC Introduction of Other Therapeutic Substance into Peripheral Vein, Percutaneous Approach (ICD-10-PCS; 2019-05-06)
DX: N30.00 Acute cystitis without hematuria (principal); Z87.440 Personal history of urinary (tract) infections; K21.9 Gastro-esophageal reflux disease without esophagitis
CPT/HCPCS: 36415; 74177-TC; 80053; 81003; 83690; 84703; 85025; 87086; 87186; 87491; 87591; 93005; 93010; 99282-25; J7030; Q9967

== ENCOUNTER 2019-08-10 09:22 | Emergency (ER) | payer OTHER ==
[2019-08-10 09:40] VITALS: BP 124/75; PULSE 70; TEMP 98.3; BMI 26.7
--- NOTE | 2019-08-10 11:48 | PDOC ---
History of Present Illness - General Chief Complaint: Cold Symptoms Stated Complaint: COLD SYMPTOMS Time Seen by Provider: 08/10/19 11:14 History Source: Patient Exam Limitations: No Limitations Past History - Travel Traveled outside of the country in the last 30 days: No Close contact w/someone who was outside of country & ill: No - Past Medical History Allergies/Adverse Reactions: Allergies Allergy/AdvReac Type Severity Reaction Status Date / Time No Known Allergies Allergy Verified 05/06/19 18:15 Home Medications: Ambulatory Orders Fluconazole [Diflucan] 150 mg PO ONCE #1 tablet 04/28/19 Omeprazole 20 mg PO BID 04/28/19 Sulfamethoxazole/Trimethoprim [Bactrim Ds Tablet] 1 each PO BID #14 tablet 04/28/19 Levofloxacin [Levaquin] 750 mg PO DAILY 6 Days #6 tablet 05/06/19 Nitrofurantoin Monohyd/M-Cryst [Macrobid -] 100 mg PO BID #14 capsule 05/10/19 Anemia: No Asthma: No Cancer: No Cardiac Disorders: No CVA: No COPD: No CHF: No DVT: No Diabetes: No GI Disorders: Yes (GERD) HTN: No Hypercholesterolemia: No - Surgical History Abdominal Surgery: No Appendectomy: No Cardiac Surgery: No Cholecystectomy: Yes Lung Surgery: No Neurologic Surgery: No - Immunization History Immunization Up to Date: Yes - Psycho Social/Smoking Cessation Hx Smoking Status: No Smoking History: Never smoked Have you smoked in the past 12 months: No Number of Cigarettes Smoked Daily: 0 Information on smoking cessation initiated: No Hx Alcohol Use: No Drug/Substance Use Hx: No Substance Use Type: None Hx Substance Use Treatment: No Review of Systems - Review of Systems Able to Perform ROS?: Yes Comments:: 08/10/19 11:35 CONSTITUTIONAL: Absent: fever, chills, diaphoresis, generalized weakness, malaise, loss of appetite HEENT: Present: Nasal congestion absent: rhinorrhea, throat pain, throat swelling, difficulty swallowing, mouth swelling, ear pain, eye pain, visual Changes CARDIOVASCULAR: Absent: chest pain, loss of consciousness, palpitations, irregular heart rate, peripheral edema RESPIRATORY: Present: Cough absent: shortness of breath, dyspnea with exertion, orthopnea, wheezing, stridor, hemoptysis GASTROINTESTINAL: Absent: abdominal pain, abdominal distension, nausea, vomiting, diarrhea, constipation, melena, hematochezia GENITOURINARY: Absent: dysuria, frequency, urgency, hesitancy, hematuria, flank pain, genital pain MUSCULOSKELETAL: Absent: myalgia, arthralgia, joint swelling SKIN: Absent: rash, itching, pallor HEMATOLOGIC/IMMUNOLOGIC: Absent: easy bleeding, easy bruising, lymphadenopathy, frequent infections ENDOCRINE: Absent: unexplained weight gain, unexplained weight loss, heat intolerance, cold intolerance NEUROLOGIC: Absent: headache, focal weakness or paresthesias, dizziness, unsteady gait, seizure, mental status changes, bladder or bowel incontinence PSYCHIATRIC: Absent: anxiety, depression, suicidal or homicidal ideation, hallucinations. Is the patient limited Kosovan proficient: No *Physical Exam - Vital Signs Last Vital Signs Temp Pulse Resp BP Pulse Ox 98.3 F 70 18 124/75 100 08/10/19 09:38 08/10/19 09:38 08/10/19 09:38 08/10/19 09:38 08/10/19 09:38 - Physical Exam 08/10/19 11:36 GENERAL: Well developed, well nourished. Awake and alert. No acute distress. HEENT: Normocephalic, atraumatic. PERRLA, EOMI. No conjunctival pallor. Sclera are non- icteric. Moist mucous membranes. Oropharynx is clear. NECK: Supple. Full ROM. No lymphadenopathy. CARDIOVASCULAR: Regular rate and rhythm. No murmurs, rubs, or gallops. Distal pulses are 2+ and symmetric. PULMONARY: No evidence of respiratory distress. Lungs clear to auscultation bilaterally. No wheezing, rales or rhonchi. EXTREMITIES: No cyanosis. No clubbing. No edema. No calf tenderness. SKIN: Warm and dry. Normal capillary refill. No rashes. No jaundice. NEUROLOGICAL: Alert, awake, appropriate. Cranial nerves 2-12 intact. No deficits to light touch and temperature in face, upper extremities and lower extremities. No motor deficits in the in face, upper extremities and lower extremities. Normoreflexic in the upper and lower extremities. Normal speech. Toes are down-going bilaterally. Gait is normal without ataxia. PSYCHIATRIC: Cooperative. Good eye contact. Appropriate mood and affect. Medical Decision Making - Medical Decision Making 08/10/19 11:56 The patient is a 33-year-old female with no past medical history, presents to the ER today for a cough and runny nose for 3 days. She states when she went to work today they told her to go home and get tested because they were concerned she might have coronavirus. She states that her coworker is being quarantined at this time but does not have a positive test. She states she has not had close contact with a coworker. Denies recent travel in the past month. She states that she has been taking [id number] medication with relief of her symptoms. Denies fevers, chills, body aches, chest discomfort. A/P: URI On exam lungs are clear to auscultation bilaterally that wheezes rales or rhonchi. Patient with audible nasal congestion. TMs and throat appear unremarkable. Patient does not meet criteria for COVID-19 testing at this time. We will refer patient to the Department of Health and a work note was given that we she will stay home for 1 week while she has symptoms. Instructed patient to follow-up with her primary care doctor and continue supportive measures I discussed the physical exam findings, ancillary test results and final diagnoses with the patient. I answered all of the patient's questions. The patient was satisfied with the care received and felt comfortable with the discharge plan and treatment plan. The Patient agrees to follow up with the primary care physician/specialist within 24-72 hours. Return precautions were given. Discharge - Discharge Information Problems reviewed: Yes Clinical Impression/Diagnosis: URI (upper respiratory infection) Qualifiers: URI type: unspecified viral URI Qualified Code(s): J06.9 - Acute upper respiratory infection, unspecified Condition: Stable Disposition: HOME - Admission No - Follow up/Referral Referrals: [facility] [place] [Provider Group] - Patient Discharge Instructions Patient Printed Discharge Instructions: DI for Viral Upper Respiratory Infection -- Adult Additional Instructions: You have an upper respiratory infection, or the common cold. Currently we are not doing routine testing for COVID-19 per health department recommendations. Please call the health department at for further recommendations. Please stay home from work until your symptoms resolve. Please take Motrin 800 mg every 8 hours as needed for pain not to exceed 3000 mg a day. Drink plenty of fluids. Cough drops and warm tea may help your symptoms as well. Please follow up with her primary care doctor this week. Return to the emergency department if you have difficulty breathing, shortness of breath, worsening pain, nausea, vomiting or if you have any changes in your symptoms. - Post Discharge Activity Work/Back to School Note: Back to Work
== END 2019-08-10 11:52 | disposition home or self-care (01) ==
LOC: JERFT 09:22
DX: J06.9 Acute upper respiratory infection, unspecified (principal); B97.89 Other viral agents as the cause of diseases classified elsewhere; K21.9 Gastro-esophageal reflux disease without esophagitis
CPT/HCPCS: 99281-25

== ENCOUNTER 2020-05-29 16:40 | Emergency (ER) | payer OTHER ==
[2020-05-29 17:07] VITALS: BMI 28.0
[2020-05-29] MEDS ORDERED: ONDANSETRON 4 MG/2 ML VIAL IVPUSH ONE (18:30)
[2020-05-29] MEDS ORDERED: FAMOTIDINE 20 MG/50 ML IVPB 20 MG/50 ML MG IVPB ONE ×2 (18:30→18:48)
[2020-05-29] MEDS ORDERED: SODIUM CHLORIDE 1,000 ML IV STA (18:30)
[2020-05-29] MEDS ORDERED: MAG HYDROX/AL HYDROX/SIMETH -MYLANTA- ORAL SUSPENSION PO ONE (18:30)
[2020-05-29] MEDS ORDERED: MAG HYDROX/AL HYDROX/SIMETH 30 ML UNIT-DOSE CUP ONE (18:48)
[2020-05-29] MEDS ORDERED: ONDANSETRON 4 MG/2 ML VIAL ONE (18:49)
[2020-05-29 19:21] LABS: BASO % 0.4 % (0-2.0); EOS % 1.6 % (0-4.5); HEMATOCRIT 39.7 % (32.4-45.2); HEMOGLOBIN 13.2 GM/dL (10.7-15.3); LYMPH % 33.1 % (8-40); MCHC 33.3 g/dl (32.0-36.0); MEAN CELL VOLUME 87.2 fl (80-96); MEAN PLT VOLUME 8.6 fl (7.5-11.1); MONO % 8.8 % (3.8-10.2); NEUT % 56.1 % (42.8-82.8); PLATELET COUNT 268 K/MM3 (134-434); RBC 4.55 M/mm3 (3.60-5.2); RDW 13.2 % (11.6-15.6); WHITE BLOOD COUNT 9.4 K/mm3 (4.0-10.0)
[2020-05-29 19:41] LABS: POTASSIUM 4.1 mmol/L (3.5-5.1)
[2020-05-29 19:44] LABS: CALCIUM 9.5 mg/dL (8.5-10.1)
[2020-05-29 19:45] LABS: ALBUMIN 4.3 g/dl (3.4-5.0); BLOOD UREA NITROGEN 9.6 mg/dL (7-18)
[2020-05-29 19:48] LABS: CREATININE 0.8 mg/dL (0.55-1.3)
[2020-05-29 19:50] LABS: BILIRUBIN,TOTAL 0.3 mg/dL (0.2-1); TOT PROT 7.6 g/dl (6.4-8.2)
[2020-05-29 19:57] LABS: HCG,QUALITATIVE URINE Negative
[2020-05-29 19:58] LABS: EPI CELLS 6 /uL (0-25.1); HYALINE CASTS 0 /uL (0-3.1); URINE APPEARANCE CLOUDY; URINE BACTERIA 384 /uL (0-1359); URINE BILIRUBIN NEGATIVE (NEGATIVE); URINE COLOR YELLOW; URINE GLUCOSE (UA) NEGATIVE (NEGATIVE); URINE KETONE NEGATIVE (NEGATIVE); URINE LEUK ESTERASE TRACE (NEGATIVE); URINE NITRITE NEGATIVE (NEGATIVE); URINE PROTEIN NEGATIVE (NEGATIVE); URINE RBC 14 /uL (0-23.9); URINE UROBILINOGEN 0.2 mg/dL (0.2-1.0); URINE WBC 6 /uL (0-25.8)
[2020-05-29 20:35] VITALS: BP 126/77; PULSE 78; TEMP 98.2
== END 2020-05-29 20:35 | disposition home or self-care (01) ==
LOC: JER 16:40
PROC: 3E033GC Introduction of Other Therapeutic Substance into Peripheral Vein, Percutaneous Approach (ICD-10-PCS; principal; 2020-05-29)
PROC: 3E033GC Introduction of Other Therapeutic Substance into Peripheral Vein, Percutaneous Approach (ICD-10-PCS; 2020-05-29)
PROC: 3E0337Z Introduction of Electrolytic and Water Balance Substance into Peripheral Vein, Percutaneous Approach (ICD-10-PCS; 2020-05-29)
DX: R10.13 Epigastric pain (principal)
CPT/HCPCS: 36415; 80053; 81003; 83690; 84703; 85025; 99284-25